=== PATIENT | female | born 1935 | race Caucasian/White ===

== ENCOUNTER → 2016-11-25 | Outpatient (CLI) | payer MEDICARE ==
[~2016-11-25] MED LIST: ASPIRIN CHILDRE81 MG PO; AUGMENTIN 875875 MG PO; EXFORGE 5 MG-161 TAB PO; KEFLEX500 MG PO; LEVOTHYROXIN0.025 MG PO; LOPRESSOR100 MG PO; PHENERGAN W/ DE30 ML PO; PREDNICOT10 MG PO; PROAIR HFA0.09 MG/AC INH; PROTONIX40 MG PO; RANITIDINE 7575 MG PO; ROBITUSSIN DM 105 ML PO; ROBITUSSIN5 ML PO; VERAPAMIL120 MG PO; VITAMIN B1250 MCG PO; VITAMIN D32000 IU PO; ZANTAC 150150 MG PO; ZITHROMAX TRI-500 M1 PO; ZITHROMAX250 MG PO; ZOFRAN ODT4 MG SL
== END | disposition home or self-care (01) ==
LOC: MAMMO 11-18 12:30
DX: Z12.31 Encounter for screening mammogram for malignant neoplasm of breast (principal); M81.0 Age-related osteoporosis without current pathological fracture

== ENCOUNTER 2017-07-15 11:05 | Inpatient (IN) | payer MEDICARE ==
[~2017-07-15] VITALS: Ht 149.9 cm; Wt 58.5 kg
[2017-07-15] VITALS (8 sets, daily range): BP systolic 140–212; BP diastolic 70–105
--- NOTE | ~2017-07-15 | PR ---
[place], [place] PROGRESS NOTE NAME: KELI GAMING [facility] #: [id number] UNIT #: [id number] ROOM: 405 DOCTOR: DOE MARIEBECCA Ebenezer BIRTHDATE: [birth year] DOS: 07/17/2017 SUBJECTIVE: The patient was seen and evaluated in followup of hyponatremia, hypertension, and overall she is doing very well. They did give her a dose of her valsartan/hydrochlorothiazide 320/12.5 this morning, blood pressure has improved from 180/80 to 110/60, this afternoon she was 124/60. She is without acute chest pain, shortness of breath, nausea, vomiting, or diarrhea. She still does not report great appetite, but I understand she would like to eat now. OBJECTIVE: VITAL SIGNS: Afebrile, 58, 17, 124/60, 94% on room air. GENERAL: Awake, alert and oriented, in no acute distress, pleasant woman from [facility]. Sclerae are anicteric. Oropharynx clear. LUNGS: Work of breathing, normal. CARDIOVASCULAR: Regular rate. No audible rub. EXTREMITIES: Without cyanosis, clubbing or edema. ABDOMEN: Soft, nontender, nondistended. SKIN: Without diffuse rash or breakdown. NEUROLOGIC: Intact. PSYCHIATRIC: Also intact. BACK: Without tenderness. LABORATORY AND DIAGNOSTICS: White blood cell count 7, hemoglobin 12.9, platelets 312. Sodium 125, potassium 4.1, chloride 91, bicarbonate 27, BUN 13, creatinine 1.19, glucose 102. ASSESSMENT AND PLAN: CKD III, baseline had been 1.2-1.4 now below her base line possibly from relative excess in volume, but more likely loss of muscle mass over time. I would avoid nephrotoxic medications, NSAID and contrast agents regarding her hyponatremia and hypertension. Sodium is stable. She did receive thiazide. I would recommend avoidance of this and continued loop diuretic. We will try her on losartan 100 mg and Lasix 20 mg b.i.d. and if necessary, she can be changed to valsartan 320 as an outpatient, which has a bit better anti-hypertensive effect than losartan. I do not think she needs fluids and her ability to take oral salt tablets might be a possibility down the road, but I would wait for now since she is doing well and just see how she does off of the thiazide long-term. She is stable to discharge, not recommend follow up labs in a week and she may come to the office. She has a persistent problem. [place], [place] PROGRESS NOTE NAME: KELI GAMING UNIT #: [id number] ROOM: 405 DOCTOR: BECCA AZAR MD BIRTHDATE: [birth year] BECCA AZAR MD CM:PNTRANS [phone] BECCA AZAR MD 07/17/17 [id number] interface
--- NOTE | ~2017-07-15 | CON ---
[place], [place] REPORT OF CONSULTATION [id number] UNIT #: [id number] ROOM: 405 DOCTOR: BECCA AZAR MD BIRTHDATE: [birth year] DOS: 07/16/2017 REASON FOR CONSULTATION: Hyponatremia, hypertension. HISTORY OF PRESENT ILLNESS: The patient is a very pleasant 81-year-old female that is originally from [facility] that has lived in the [place] area for over 60 years. She is very pleasant woman that reports recent change in medications by her PCP. She was reporting increasing lower extremity edema and was reportedly taken off of her verapamil and told to increase one medication from once a day to twice a day. I suspected that was the valsartan and hydrochlorothiazide. She states that since this had been done, she was noting increase issues at home. When she presented to the hospital, notably her blood pressure was quite elevated at 200/100 as high as 212 specifically over 105, but at home, her blood pressure was about 180/90. She was getting headaches. She was developing weakness, loss of appetite, feeling of nausea when she would try to eat and she did think that she lost about 6 pounds in that week. Overall, weight has not been dropping drastically over the last year. We are consulted because her initial sodium was 126 and is down to 124 today. Her creatinine has been 1.08 and 1.06, but in the past, she has been mostly between 1.3, 1.2 and 1.38, going back to 2007 from hospital records. She did not have any blood in her vomit or any blood in her stool. She denies any trauma. She denies nonadherence to her medications. She had been given potassium and clonidine in the Emergency Room as well as an IV medication, which she states made her sick in the heart and she felt some discomfort of her chest, I suspect this was hydralazine 20 mg. She has not been restarted on her hydrochlorothiazide, but does continue on her angiotensin receptor fareed. She was also restarted on verapamil and so far has no issues with any lower extremity edema today. She underwent a head CT because of the headache, which showed no acute process. She has no reported medical renal history. PAST MEDICAL HISTORY: Hypertension, history of GERD, history of cholecystectomy, D and C and hysterectomy. FAMILY HISTORY: Negative for renal failure. SOCIAL HISTORY: ALLERGIES TO CODEINE. HOME MEDICATIONS: Aspirin, calcium, vitamin D, Synthroid, metoprolol, Zantac, Diovan HCTZ, verapamil which was recently stopped. REVIEW OF SYSTEMS: All systems reviewed and negative except for as per HPI. PHYSICAL EXAMINATION: VITAL SIGNS: Blood pressures currently 146/80, temperature 97.9, pulse 79, respiratory rate 18, saturation 97% on room air. GENERAL: She is age appropriate woman originally from [facility] that is pleasant with appropriate speech patterns and fluency. Mood and affect are normal. HEAD AND NECK: Sclerae are anicteric. Oropharynx is slightly dry. Mucous membranes are without thrush. No JVP or lymphadenopathy. LUNGS: Clear with no audible rales or wheeze. [place], [place] REPORT OF CONSULTATION NAME: KELI GAMING UNIT #: [id number] ROOM: 405 DOCTOR: BECCA AZAR MD BIRTHDATE: [birth year] CARDIOVASCULAR: Regular rate. No audible rub. No palpable lift or heave. ABDOMEN: Soft, nontender, nondistended. No rebound or guarding. EXTREMITIES: Lower extremities without cyanosis, clubbing or edema. SKIN: Slightly with , but likely age dependent more so than volume depletion I think. NEUROLOGIC: No asterixis, no myoclonus. Grossly normal motor and sensation. LABORATORY AND DIAGNOSTIC DATA: Urinalysis, clear yellow urine with specific gravity less than 1.005 on admission. There was some trace blood. Urine osmolality was low at 224, urine sodium was 39, urine potassium 14, urine chloride 32. White blood cell count 8.3, hemoglobin 13.6, platelets 328. Sodium today is 124, potassium 3.8, chloride 86, bicarb 27, BUN 15, creatinine 1.06 and glucose 80, A1c is 6, calcium 8.7, phosphorus 2.5, magnesium 1.9. LFTs unremarkable. Lipids unremarkable. Vitamin D 37.5. Vitamin B12 is slightly low at 236. Folate 8.85. Thyroid function studies normal. ASSESSMENT AND PLAN: 1. Chronic kidney disease 3, baseline creatinine had been 1.2-1.4, currently below baseline and may represent some degree of relative excess in volume and loss of muscle mass over time. Avoid nephrotoxic medications, NSAIDs. Contrast agents stable. 2. Hyponatremia. This is slightly worse today. We would recommend increasing sodium and salt intake and solute intake despite her uncontrolled hypertension. I suspect her thiazide had something to do with this, but relative decrease of solute intake and relative increase of fluid as well as ongoing issues with nausea may have precipitated an elevated ADH state. Currently, her urine electrolytes do not point to significantly increased ADH response. Gentle fluids could be given, but we will see how she does with just oral salt tablets for now. Her uncontrolled hypertension has been under much better control since resumption of other home medications again with the exception of hydrochlorothiazide. I would continue to hold this if necessary, use low-dose loop diuretic for blood pressure and volume control if needed. Thank you very much for the kind consultation. Case was discussed with the patient and daughter as well as the nurse. BECCA AZAR MD CM:CONSTR:REPORT OF CONSULTATION 1142 07/16/17 1173 interface
[~2017-07-15 11:05] MED LIST changes: +CALAN SR120 MG PO; -VERAPAMIL120 MG PO
[2017-07-15] MEDS ORDERED: VALSARTAN-HCTZ1 EAC3 PO (11:34)
[2017-07-15 12:06] LABS: BASO % 0.6 % (0.0-1.0); EOS # 0.3 10*3/uL (0.0-0.4); EOS % 4.2 % (1.0-4.0); LYMPH # 1.5 10*3/uL (1.3-4.4); LYMPH % 20.5 % (27.0-41.0); MEAN CELL VOLUME 86.8 fl (81.0-99.0); MEAN CORPUSCULAR HGB 30.4 pg (27.0-31.0); MONO # 0.6 10*3/uL (0.1-1.0); MONO % 8.6 % (3.0-9.0); NEUT # 4.7 10*3/uL (2.3-7.9); NEUT % 65.8 % (47.0-73.0); PLATELET COUNT AUTOMATED 315 10*3/uL (130-400); RED BLOOD COUNT 4.61 10*6/uL (4.10-5.10); RED CELL DISTRI WIDTH 12.7 % (0-14.5); WHITE BLOOD COUNT 7.1 10*3/uL (4.8-10.8)
[2017-07-15 12:18] LABS: ALBUMIN 3.8 gm/dl (3.1-4.5); CREATININE 1.08 mg/dL (0.55-1.02); POTASSIUM 3.3 mmol/L (3.5-5.1); TOTAL PROTEIN 7.8 gm/dL (6.4-8.2)
--- NOTE | 2017-07-15 15:00 | NUR ---
Time: 1500 A 81 year old F admitted to under services of SYLWIA MITCHELL DO. Pt. arrived via stretcher from ER. Chief complaint: Increased bp & frontal hylton. RISHABH KENYON
--- NOTE | 2017-07-15 15:18 | NUR ---
SPOKE WITH MELECIO AT DR SULLIVAN OFFICE REGARDING CONSULT.
[2017-07-15] MEDS ORDERED: CALCIUM500 M1 PO (15:47)
--- NOTE | 2017-07-15 16:14 | NUR ---
MED REC VERIFIED & UPDATED WITH [facility].
--- NOTE | 2017-07-15 16:47 | NUR ---
MEDICATED PO ORDERED PER PT REQUEST WITH TYLENOL 2 TABS FOR C/O FRONTAL MCCARTNEY. PT DENIES C/O VISUAL CHANGES OR CHEST PAIN. NO DIZZINESS OR S.O.B. BP REMAINS ELEVATED, WILL INFORM DR SHEEHAN.
--- NOTE | 2017-07-15 17:10 | NUR ---
SARAY LAINEZ NOTIFIED THAT PT IS HYPERTENSIVE. AWAITING FURTHER ORDERS.
--- NOTE | 2017-07-15 18:52 | NUR ---
SETTING AT SIDE OF BED, STATES MEDICATION EFFECTIVE IN RELIEVING MCCARTNEY. EATING & TOLERATING MEAL.
[2017-07-15 19:11] LABS: BILIRUBIN NEGATIVE (NEGATIVE); BLOOD TRACE-INTACT (NEGATIVE); CLARITY CLEAR (CLEAR); COLOR YELLOW (YELLOW); GLUCOSE 1+ (NEGATIVE); KETONE NEGATIVE (NEGATIVE); LEUKO ESTERASE NEGATIVE (NEGATIVE); NITRITE NEGATIVE (NEGATIVE); PH 5.5 (5.0-9.0); SPECIFIC GRAVITY <= 1.005 (1.005-1.030); UROBILINOGEN 0.2 E.U./dl (0.2-1.0)
[2017-07-15 19:22] LABS: URINE CREATININE RANDOM 40.1 mg/dL
[2017-07-15 19:29] LABS: BACTERIA TRACE; EPITHELIAL CELLS 0-5; RBC 0-2 rbc/hpf (0-2)
[2017-07-16] VITALS (7 sets, daily range): BP systolic 142–182; BP diastolic 66–88
[2017-07-16 05:44] LABS: BASO % 0.5 % (0.0-1.0); EOS # 0.4 10*3/uL (0.0-0.4); EOS % 4.6 % (1.0-4.0); HEMATOCRIT 38.6 % (37.0-47.0); HEMOGLOBIN 13.6 g/dl (12.0-16.0); LYMPH # 2.1 10*3/uL (1.3-4.4); LYMPH % 25.3 % (27.0-41.0); MEAN CELL VOLUME 86.4 fl (81.0-99.0); MEAN CORPUSCULAR HGB 30.4 pg (27.0-31.0); MEAN CORPUSCULAR HGB CONC 35.2 g/dl (33.0-37.0); MEAN PLATELET VOLUME 9.2 fl (9.6-12.3); MONO # 0.8 10*3/uL (0.1-1.0); MONO % 9.1 % (3.0-9.0); PLATELET COUNT AUTOMATED 328 10*3/uL (130-400); RED BLOOD COUNT 4.47 10*6/uL (4.10-5.10); RED CELL DISTRI WIDTH 12.6 % (0-14.5); WHITE BLOOD COUNT 8.3 10*3/uL (4.8-10.8)
[2017-07-16 06:13] LABS: ALBUMIN 3.4 gm/dl (3.1-4.5); ALKALINE PHOSPHATASE 48 U/L (45-117); BUN 15 mg/dl (7-24); CHLORIDE 86 mmol/L (98-107); CHOLESTEROL 156 mg/dL (<200); CREATININE 1.06 mg/dL (0.55-1.02); FREE T4 1.32 ng/dl (0.76-1.46); HDL CHOLESTEROL 58 mg/dl (40-60); LDL CHOLESTEROL 71 mg/dL (9-159); PHOSPHOROUS 2.5 mg/dL (2.5-4.9); POTASSIUM 3.8 mmol/L (3.5-5.1); SGOT/AST 18 IU/L (3-35); SGPT/ALT 19 U/L (12-78); SODIUM 124 mmol/L (136-145); TOTAL PROTEIN 7.2 gm/dL (6.4-8.2); TRIGLYCERIDES 137 mg/dl (<150); VLDL CHOLESTEROL 27 mg/dL (6-40)
[2017-07-16 07:17] LABS: VITAMIN D, 25-HYDROXY 37.5 ng/mL (30-100)
--- NOTE | 2017-07-16 13:53 | NUR ---
NOTIFIED THAT PT'S BP BACK UP TO 180/80. PT C/O HEADACHE AND MEDICATED WITH TYLNEOL PER ORDER.
--- NOTE | 2017-07-16 14:08 | NUR ---
VERIFIED WITH : PATIENT'S COZAAR IS NOT TO BE GIVEN UNTIL TONIGHT. NO ORDERS FOR ANYTHING TO GIVE NOW.
--- NOTE | 2017-07-16 15:47 | NUR ---
WROTE DOWN MEDICATION FOR PATIENTS AND HE IS TO BRING IN DIOVAN IF HE HAS IT AT HOME PER REQUEST FROM PHARMACY. PENDING ORDER.
--- NOTE | 2017-07-16 16:01 | NUR ---
ONE TIME APRESOLINE DOSE GIVEN PER ORDER.
--- NOTE | 2017-07-16 17:42 | NUR ---
PT MEDICATED AT THIS TIME WITH PRN TYLENOL FOR C/O A HEADACHE. WILL CONTINUE TO MONITOR. PT STATES SHE GOT THE HEADACHE BECAUSE SHE IS VERY HUNGRY.
--- NOTE | 2017-07-16 18:26 | NUR ---
PT MEDICATED WITH PRN ZOFRAN AFTER EMESIS X1 AFTER ATTEMPTING TO EAT DINNER. RECHECKED BLOOD PRESSURE AND FOUND IT TO BE 182/88 MANUALLY. ATTEMPTED TO CALL RESIDENT PHONE #1 WITH NO ANSWER. WILL RETRY.
--- NOTE | 2017-07-16 18:44 | NUR ---
PT DID NOT HAVE VALSARTAN/HYDROCHLORATHYAZIDE IT WAS NONFORMULARY AND HAD NOT BEEN BROUGHT IN BY FAMILY. PTS ABLE TO GET HOME MED AND IT WAS TAAGGED BY PHARMACY AND PUT IN [facility]. PTS BLOOD PRESSURE ELEVATED AT 182/88 AND WAS ADMINISTERED A ONE TIME DOSE PER DR. FERGUSON AT THIS TIME.
--- NOTE | 2017-07-16 22:00 | NUR ---
PT GIVEN PRN TYLENOL FOR PAIN. WILL CONINUE TO MONITOR.
[2017-07-17] VITALS: BP 111/60
[2017-07-17 06:32] LABS: BASO # 0.1 10*3/uL (0.0-0.1); EOS # 0.3 10*3/uL (0.0-0.4); EOS % 4.6 % (1.0-4.0); HEMATOCRIT 36.5 % (37.0-47.0); HEMOGLOBIN 12.9 g/dl (12.0-16.0); LYMPH # 2.1 10*3/uL (1.3-4.4); LYMPH % 29.4 % (27.0-41.0); MEAN CELL VOLUME 87.1 fl (81.0-99.0); MEAN CORPUSCULAR HGB 30.8 pg (27.0-31.0); MEAN CORPUSCULAR HGB CONC 35.3 g/dl (33.0-37.0); MEAN PLATELET VOLUME 9.3 fl (9.6-12.3); MONO # 0.7 10*3/uL (0.1-1.0); MONO % 10.1 % (3.0-9.0); NEUT # 3.8 10*3/uL (2.3-7.9); NEUT % 54.5 % (47.0-73.0); PLATELET COUNT AUTOMATED 312 10*3/uL (130-400); RED BLOOD COUNT 4.19 10*6/uL (4.10-5.10); RED CELL DISTRI WIDTH 12.4 % (0-14.5)
--- NOTE | 2017-07-17 06:55 | NUR ---
Shift chart check completed.
[2017-07-17 07:08] LABS: CREATININE 1.19 mg/dL (0.55-1.02); POTASSIUM 4.1 mmol/L (3.5-5.1)
[2017-07-17 07:39] VITALS: BP 182/80; BP 182/88
--- NOTE | 2017-07-17 07:40 | NUR ---
BLOOD PRESSURE ELEVATED. MORNING MEDICATIONS GIVEN. DISCUSSED WITH PATIENT & FAMILY THAT WE WILL RECHECK IN ABOUT AN HOUR TO SEE IF THE MEDICATION IS WORKING THEN THE RN WILL CALL THE PHYSICIAN TO REVIEW VITALS/MED & RESULTS. BOTH VOICED UNDERSTANDING. BLOOD PRESSURE IS SAME IN BOTH ARMS
[2017-07-17 08:46] VITALS: BP 110/60
--- NOTE | 2017-07-17 08:50 | NUR ---
CALL PLACED TO RENAL ABOUT BLOOD PRESSURE & MEDICATIONS
--- NOTE | 2017-07-17 09:16 | NUR ---
TYLENOL FOR HEADACHE
[2017-07-17 12:00] VITALS: BP 124/60
--- NOTE | 2017-07-17 14:30 | NUR ---
DR AZAR HERE AND DISCUSSED WITH THE FAMILY THE DC PLAN
[2017-07-17] MEDS ORDERED: B12,B-12,B 12500 MC1 PO (14:46)
[2017-07-17] MEDS ORDERED: FUROSEMIDE20 M1 PO (14:46)
[2017-07-17] MEDS ORDERED: DIOVAN320 MG PO (14:47)
--- NOTE | 2017-07-17 15:17 | NUR ---
Discharge instructions reviewed with patient/family. Patient receptive and verbalizes understanding. Follow-up care arranged. Written instructions given to patient/family. Hep Lock discontinued. Site asymptomatic. Pressure applied. Sterile dressing applied. JAROD MCKENZIE
--- NOTE | 2017-07-17 15:40 | NUR ---
Patient taken out via wheel chair with here.
== END 2017-07-17 15:40 | disposition home or self-care (01) | DRG 305 ==
LOC: ED 11:05 → EDHOLD 13:26 → 4E 13:56
PROVIDERS: Emergency Medicine; Family Medicine; Registered Nurse; ADMIT Internal Medicine
DX: I16.1 Hypertensive emergency (principal); E87.1 Hypo-osmolality and hyponatremia; N18.3 Chronic kidney disease, stage 3 (moderate); I12.9 Hypertensive chronic kidney disease with stage 1 through stage 4 chronic kidney disease, or unspecified chronic kidney disease; K21.9 Gastro-esophageal reflux disease without esophagitis; E87.6 Hypokalemia; J06.9 Acute upper respiratory infection, unspecified; E03.9 Hypothyroidism, unspecified; E55.9 Vitamin D deficiency, unspecified; Z88.6 Allergy status to analgesic agent; Z90.49 Acquired absence of other specified parts of digestive tract; Z90.722 Acquired absence of ovaries, bilateral; Z90.710 Acquired absence of both cervix and uterus; Z79.82 Long term (current) use of aspirin; Z79.899 Other long term (current) drug therapy

== ENCOUNTER → 2017-07-20 | Outpatient (CLI) | payer MEDICARE ==
[~2017-07-20] MED LIST changes: +B12,B-12,B 12500 MC1 PO; +CALCIUM500 M1 PO; +DIOVAN320 MG PO; +FUROSEMIDE20 M1 PO; +VALSARTAN-HCTZ1 EAC3 PO
[2017-07-20 08:00] LABS: CREATININE 1.48 mg/dL (0.55-1.02)
== END | disposition home or self-care (01) ==
LOC: LAB 07:21
PROVIDERS: Internal Medicine
DX: E87.1 Hypo-osmolality and hyponatremia (principal)

== ENCOUNTER 2017-12-23 14:32 | Emergency (ER) | payer MEDICARE ==
[~2017-12-23] VITALS: Ht 152.4 cm; Wt 58.1 kg
[2017-12-23 15:14] LABS: BASO % 0.5 % (0.0-1.0); EOS # 0.3 10*3/uL (0.0-0.4); EOS % 3.9 % (1.0-4.0); HEMATOCRIT 40.1 % (37.0-47.0); HEMOGLOBIN 13.1 g/dl (12.0-16.0); LYMPH % 25.7 % (27.0-41.0); MEAN CELL VOLUME 93.3 fl (81.0-99.0); MEAN CORPUSCULAR HGB 30.5 pg (27.0-31.0); MEAN CORPUSCULAR HGB CONC 32.7 g/dl (33.0-37.0); MEAN PLATELET VOLUME 9.5 fl (9.6-12.3); MONO # 0.6 10*3/uL (0.1-1.0); MONO % 8.2 % (3.0-9.0); NEUT # 4.7 10*3/uL (2.3-7.9); NEUT % 61.3 % (47.0-73.0); PLATELET COUNT AUTOMATED 294 10*3/uL (130-400); WHITE BLOOD COUNT 7.7 10*3/uL (4.8-10.8)
[2017-12-23 15:21] LABS: INTERNATIONAL NORM RATIO 0.9 (2.0-3.5)
[2017-12-23 15:33] LABS: ALBUMIN 3.7 gm/dl (3.1-4.5); BUN 18 mg/dl (7-24); CHLORIDE 98 mmol/L (98-107); CREATININE 1.36 mg/dL (0.55-1.02); LIPASE 357 U/L (73-393); POTASSIUM 3.5 mmol/L (3.5-5.1); SGOT/AST 25 IU/L (3-35); SGPT/ALT 22 U/L (12-78); SODIUM 132 mmol/L (136-145); TOTAL PROTEIN 7.3 gm/dL (6.4-8.2)
[2017-12-23 15:35] LABS: ALKALINE PHOSPHATASE 51 U/L (45-117)
[2017-12-23 15:36] LABS: TROPONIN I < 0.015 ng/ml (<0.045)
== END 2017-12-23 17:33 | disposition home or self-care (01) ==
LOC: ED 14:32
PROVIDERS: Physician Assistant
DX: K21.9 Gastro-esophageal reflux disease without esophagitis (principal); Z90.49 Acquired absence of other specified parts of digestive tract; Z98.890 Other specified postprocedural states; Z90.710 Acquired absence of both cervix and uterus; Z79.82 Long term (current) use of aspirin; Z79.899 Other long term (current) drug therapy; Z88.5 Allergy status to narcotic agent

== ENCOUNTER → 2018-01-05 | Outpatient (CLI) | payer MEDICARE ==
[2018-01-05 07:48] LABS: BASO % 0.7 % (0.0-1.0); EOS # 0.3 10*3/uL (0.0-0.4); EOS % 5.1 % (1.0-4.0); HEMATOCRIT 40.7 % (37.0-47.0); HEMOGLOBIN 13.1 g/dl (12.0-16.0); LYMPH # 1.7 10*3/uL (1.3-4.4); MEAN CELL VOLUME 94.4 fl (81.0-99.0); MEAN CORPUSCULAR HGB 30.4 pg (27.0-31.0); MEAN CORPUSCULAR HGB CONC 32.2 g/dl (33.0-37.0); MEAN PLATELET VOLUME 9.4 fl (9.6-12.3); MONO # 0.6 10*3/uL (0.1-1.0); MONO % 9.4 % (3.0-9.0); NEUT # 3.4 10*3/uL (2.3-7.9); NEUT % 56.6 % (47.0-73.0); PLATELET COUNT AUTOMATED 275 10*3/uL (130-400); RED BLOOD COUNT 4.31 10*6/uL (4.10-5.10); RED CELL DISTRI WIDTH 13.1 % (0-14.5); WHITE BLOOD COUNT 6.1 10*3/uL (4.8-10.8)
[2018-01-05 08:19] LABS: ALBUMIN 3.7 gm/dl (3.1-4.5); CREATININE 1.37 mg/dL (0.55-1.02); POTASSIUM 3.6 mmol/L (3.5-5.1); TOTAL PROTEIN 7.2 gm/dL (6.4-8.2)
== END | disposition home or self-care (01) ==
LOC: LAB 07:30
PROVIDERS: Internal Medicine
DX: E03.9 Hypothyroidism, unspecified (principal); E55.9 Vitamin D deficiency, unspecified; I10 Essential (primary) hypertension

== ENCOUNTER 2018-11-17 13:43 | Emergency (ER) | payer MEDICARE ==
[~2018-11-17] VITALS: Ht 149.8 cm; Wt 62.6 kg
[~2018-11-17 13:43] MED LIST changes: +AMLODIPINE BESYL5 MG PO; +ELIQUIS5 M1 PO; +LASIX20 MG PO; +TOPROL XL50 M1 PO; +VERAPAMIL HCL240 M1 PO; +XARELTO20 M1 PO; +ZANTAC 7575 M1 PO
[2018-11-17 14:13] LABS: BASO # 0.1 10*3/uL (0.0-0.1); EOS # 0.5 10*3/uL (0.0-0.4); EOS % 10.9 % (1.0-4.0); HEMATOCRIT 39.5 % (37.0-47.0); HEMOGLOBIN 12.7 g/dl (12.0-16.0); LYMPH # 0.9 10*3/uL (1.3-4.4); LYMPH % 17.7 % (27.0-41.0); MEAN CORPUSCULAR HGB 30.2 pg (27.0-31.0); MEAN CORPUSCULAR HGB CONC 32.2 g/dl (33.0-37.0); MEAN PLATELET VOLUME 8.9 fl (9.6-12.3); MONO # 0.6 10*3/uL (0.1-1.0); MONO % 12.3 % (3.0-9.0); NEUT # 2.8 10*3/uL (2.3-7.9); NEUT % 57.9 % (47.0-73.0); PLATELET COUNT AUTOMATED 318 10*3/uL (130-400); RED CELL DISTRI WIDTH 13.2 % (0-14.5); WHITE BLOOD COUNT 4.9 10*3/uL (4.8-10.8)
[2018-11-17 14:40] LABS: ALBUMIN 3.7 gm/dl (3.1-4.5); CREATININE 1.2 mg/dL (0.55-1.02); POTASSIUM 3.3 mmol/L (3.5-5.1); TOTAL PROTEIN 7.2 gm/dL (6.4-8.2)
== END 2018-11-17 15:55 | disposition home or self-care (01) ==
LOC: ED 13:43
PROVIDERS: Nurse Practitioner Family
DX: J06.9 Acute upper respiratory infection, unspecified (principal); E87.6 Hypokalemia; I10 Essential (primary) hypertension; E78.5 Hyperlipidemia, unspecified; Z88.5 Allergy status to narcotic agent; Z79.899 Other long term (current) drug therapy; Z90.710 Acquired absence of both cervix and uterus; Z90.49 Acquired absence of other specified parts of digestive tract

== ENCOUNTER → 2019-01-25 | Outpatient (CLI) | payer MEDICARE | END | disposition home or self-care (01) | LOC: MAMMO 01:27 | DX: Z12.31 Encounter for screening mammogram for malignant neoplasm of breast (principal) ==

== ENCOUNTER → 2020-04-21 | Outpatient (CLI) | payer MEDICARE ==
[2020-04-21 11:12] LABS: BASO # 0.1 10*3/uL (0.0-0.1); BASO % 1.1 % (0.0-1.0); EOS # 0.4 10*3/uL (0.0-0.4); EOS % 7.7 % (1.0-4.0); HEMATOCRIT 45.7 % (37.0-47.0); LYMPH # 1.5 10*3/uL (1.3-4.4); MEAN CELL VOLUME 92.5 fl (81.0-99.0); MEAN CORPUSCULAR HGB CONC 32.4 g/dl (33.0-37.0); MEAN PLATELET VOLUME 9.4 fl (9.6-12.3); MONO # 0.5 10*3/uL (0.1-1.0); MONO % 8.4 % (3.0-9.0); NEUT # 3.2 10*3/uL (2.3-7.9); NEUT % 56.6 % (47.0-73.0); PLATELET COUNT AUTOMATED 320 10*3/uL (130-400); RED BLOOD COUNT 4.94 10*6/uL (4.10-5.10); RED CELL DISTRI WIDTH 12.9 % (0-14.5); WHITE BLOOD COUNT 5.6 10*3/uL (4.8-10.8)
== END ==
LOC: LAB 10:39
PROVIDERS: Orthopaedic Surgery
DX: M79.641 Pain in right hand (principal); R22.31 Localized swelling, mass and lump, right upper limb

== ENCOUNTER → 2020-11-05 | Outpatient (CLI) | payer MEDICARE ==
[~2020-11-05] MED LIST changes: +OMEPRAZOLE20 M2 PO
== END | disposition home or self-care (01) ==
LOC: CARD 00:07
PROVIDERS: ATTEND Physician Assistant
DX: R07.9 Chest pain, unspecified (principal); R53.81 Other malaise; I10 Essential (primary) hypertension

== ENCOUNTER 2021-06-08 17:22 | Emergency (ER) | payer MEDICARE ==
[~2021-06-08] VITALS: Wt 59.0 kg
== END 2021-06-08 18:03 | disposition left against medical advice (07) ==
LOC: ED 17:22
DX: R11.0 Nausea (principal); R51.9 Headache, unspecified; Z53.21 Procedure and treatment not carried out due to patient leaving prior to being seen by health care provider

== ENCOUNTER 2021-06-22 12:35 | Inpatient (IN) | payer OTHER, MEDICARE ==
[~2021-06-22] VITALS: Ht 154.9 cm; Wt 59.1 kg
[~2021-06-22 12:35] MED LIST changes: +LOPRESSOR100 M1 PO
[2021-06-22 16:00] VITALS: BP 99/46
[2021-06-23] VITALS: BP 71/32
== END 2021-06-23 04:24 | DRG 177 ==
LOC: 4E 12:35
PROVIDERS: ADMIT Family Medicine; ATTEND Family Medicine
DX: U07.1 COVID-19 (principal); J96.01 Acute respiratory failure with hypoxia; Z51.5 Encounter for palliative care; I50.31 Acute diastolic (congestive) heart failure; J12.82 Pneumonia due to coronavirus disease 2019; E44.1 Mild protein-calorie malnutrition; Z68.26 Body mass index [BMI] 26.0-26.9, adult